=== PATIENT | male | born 1980 | race Caucasian/White ===

== ENCOUNTER 2019-10-31 11:06 | Emergency (ER) | payer SELFPAY ==
[~2019-10-31] VITALS: Ht 170.2 cm; Wt 125.0 kg
[2019-10-31 11:30] LABS: BASOPHILS # (AUTO) 0.03 x10^3/uL (0-0.1); BASOPHILS % (AUTO) 0 % (0-1); EOSINOPHILS # (AUTO) 0.01 x10^3/uL (0-0.4); EOSINOPHILS % (AUTO) 0 % (1-7); LYMPHOCYTES % (AUTO) 26 % (22-44); MD NO; MEAN CORPUSCULAR HEMOGLOBIN 26.8 pg (27.5-34.5); MEAN CORPUSCULAR HGB CONC 32.8 g/dL (33.2-36.2); MEAN CORPUSCULAR VOLUME 81.9 fL (81-97); MONOCYTES # (AUTO) 0.61 x10^3/uL (0.2-0.8); MONOCYTES % (AUTO) 8 % (2-9); NEUTROPHILS # (AUTO) 5.43 x10^3/uL (1.8-6.8); NEUTROPHILS % (AUTO) 66 % (42-75); PLATELET COUNT 295 x10^3/uL (130-400); RED BLOOD COUNT 5.66 x10^6/uL (4.38-5.82); RED CELL DISTRIBUTION WIDTH 13.1 % (9.4-14.8)
[2019-10-31 11:42] LABS: ALBUMIN 3.9 g/dL (3.4-5.0); ANION GAP 8 mmol/L (5-15); CALCIUM 8.7 mg/dL (8.5-10.1); CHLORIDE 108 mmol/L (98-107); SALICYLATE LEVEL 2.3 mg/dL (2.8-20.0)
[2019-10-31 11:45] LABS: ALANINE AMINOTRANSFERASE 58 U/L (12-78); ALKALINE PHOSPHATASE 51 U/L (45-117); BILIRUBIN,TOTAL 0.5 mg/dL (0.2-1.0)
--- NOTE | 2019-10-31 11:55 | NUR ---
PT PROVIDED WITH URINE CUP AND INSTRUCTIONS FOR ITS COLLECTION. PT VERBALIZES UNDERSTANDING, BUT IS PREOCCUPIED WITH TRANSPORTATION AFTER DISCHARGE. PT INFORMED THAT THE URINE SAMPLE IS THE LAST THING NEEDED FOR HIS MEDICAL WORKUP. PT VERBALIZES UNDERSTANDING. CUP LEFT AT BEDSIDE, CALL LIGHT IN REACH.
[2019-10-31 12:58] LABS: AMPHETAMINE SCREEN, URINE Positive (Negative); BARBITURATE SCREEN, URINE Negative (Negative); BENZODIAZEPINE SCREEN, URINE Negative (Negative); CANNABINOID SCREEN, URINE Positive (Negative); COCAINE SCREEN, URINE Negative (Negative); METHADONE SCREEN, URINE Negative (Negative); OPIATE SCREEN, URINE Negative (Negative)
[2019-10-31] MEDS ORDERED: OLANZAPINE 10 MG TABLET ONE (13:48)
[2019-10-31] MEDS: OLANZAPINE 10 MG TABLET PO SCH (13:50)
--- NOTE | 2019-10-31 15:14 | NUR ---
PACKET FAXED TO [facility]
--- NOTE | 2019-10-31 15:33 | NUR ---
PT REMAINS IN BED, DENIES ANY NEEDS OR CONCERNS AT THIS TIME.
--- NOTE | 2019-10-31 16:44 | NUR ---
CARPENTER RAILCAR: PT MOVED TO SECURE ROOM 38.
--- NOTE | 2019-10-31 17:22 | NUR ---
RECEIVED REPORT FROM RICHMOND LIZAMA
--- NOTE | 2019-10-31 17:22 | NUR ---
ROOM EQUIPMENT SECURED BEHIND PULL DOWN DOORS. PT IN DIRECT VIEW OF PT.
--- NOTE | 2019-10-31 18:51 | NUR ---
REPORT TO AZIZA LIZAMA
--- NOTE | 2019-10-31 19:40 | NUR ---
PATIENT SLEEPING COMFORTABLY AT THIS TIME, NAD. SITTER OUTSIDE OF PATIENTS ROOM, AWAITING FOR PLACEMENT. PATIENT UTD ON PLAN RN WILL CONTINUE TO MONITOR
--- NOTE | 2019-10-31 22:09 | NUR ---
patient got up and steadily ambulated to the bathroom and back into his room. patient is calm and cooperative. rn gave patient cranberry juice upon request from patient. rn will continue to monitor
--- NOTE | 2019-11-01 00:16 | NUR ---
PATIENT SLEEPING IN ROOM, CALM AND COOPERATIVE, NAD, SITTER OUTSIDE OF ROOM. AWAITING FOR PLACEMENT, RN WILL CONTINUE TO MONITOR
--- NOTE | 2019-11-01 02:57 | NUR ---
TASK RN: PT ASLEEP IN [facility] AT THIS TIME; FRANKI. SITTER OUTSIDE OF PT ROOM FOR DIRECT OBSERVATION OF PT AT THIS TIME.
--- NOTE | 2019-11-01 06:02 | NUR ---
patient asleep resting comfortably, nad, nothing needed at this time, sitter outside, rn will continue to monitor
--- NOTE | 2019-11-01 07:04 | NUR ---
REPORT RECEIVED FROM AZIZA LIZAMA. PT SLEEPING ON HOSPITAL BED W/ SITTER OUTSIDE ROOM FOR SAFETY. FRANKI.
--- NOTE | 2019-11-01 08:03 | NUR ---
VSS, RESP EVEN AND UNLABORED, NADN. PT DENIES SI/HI AT THIS TIME. PT CALM AND COOPERATIVE. PT EDUCATED ON L2K PROCESS AND THAT HE WOULD BE SEEN BY A PSYCH DIRECTOR OF BRAND MARKETING BETWEEN 10-11AM TODAY. PT PROVIDED W/ 2 CRANBERRY JUICES PER REQUEST.
--- NOTE | 2019-11-01 08:24 | NUR ---
BREAKFAST TRAY DELIVERED.
[2019-11-01] MEDS ORDERED: OLANZAPINE 10 MG TABLET ONE (08:44)
[2019-11-01] MEDS: OLANZAPINE 10 MG TABLET PO SCH (08:53)
--- NOTE | 2019-11-01 08:53 | NUR ---
PT MEDICATED PER EMAR. RESTING ON GURNEY W/ SITTER OUTSIDE ROOM. GARAGE DOORS DOWN FOR SAFETY.
--- NOTE | 2019-11-01 09:49 | NUR ---
PT RESTING ON GURNEY W/ SITTER OUTSIDE ROOM. GARAGE DOORS DOWN FOR SAFETY. FRANKI.
--- NOTE | 2019-11-01 10:59 | NUR ---
PT RESTING ON GURNEY W/ SITTER OUTSIDE ROOM. GARAGE DOORS DOWN FOR SAFETY. FRANKI.
--- NOTE | 2019-11-01 11:14 | NUR ---
LUNCH TRAY ORDERED.
--- NOTE | 2019-11-01 11:49 | NUR ---
LUNCH TRAY DELIVERED. PT RESTING ON GURNEY W/ SITTER OUTSIDE ROOM AND GARAGE DOORS DOWN FOR SAFETY.
--- NOTE | 2019-11-01 13:00 | NUR ---
ROSIE MENENDEZ AT BEDSIDE FOR EVAL.
--- NOTE | 2019-11-01 13:52 | NUR ---
PT RESTING ON GURNEY W/ SITTER OUTSIDE ROOM. GARAGE DOORS DOWN FOR SAFETY. FRANKI.
--- NOTE | 2019-11-01 14:56 | NUR ---
PT RESTING ON GURNEY W/ SITTER OUTSIDE ROOM. GARAGE DOORS DOWN FOR SAFETY. FRANKI.
--- NOTE | 2019-11-01 15:00 | NUR ---
PT TRANSPORTED TO HOSPITAL BED.
--- NOTE | 2019-11-01 16:13 | NUR ---
PT RESTING ON HOSPITAL BED W/ SITTER OUTSIDE ROOM. GARAGE DOORS DOWN FOR SAFETY. SUSANN.
--- NOTE | 2019-11-01 17:15 | NUR ---
PT RESTING ON HOSPITAL BED W/ SITTER OUTSIDE ROOM. GARAGE DOORS DOWN FOR SAFETY. SUSANN.
--- NOTE | 2019-11-01 17:30 | NUR ---
DINNER TRAY DELIVERED.
--- NOTE | 2019-11-01 18:50 | NUR ---
REPORT GIVEN TO LINDA LIZAMA.
--- NOTE | 2019-11-01 19:50 | NUR ---
PT RESTING ON GURNEY, RESP EVEN AND UNLABORED. PT DENIES ANY NEEDS AT THIS TIME. SITTER IN DIRECT LINE OF SITE. WILL CONTINUE TO MONITOR
[2019-11-01 21:15] VITALS: BP 110/68
--- NOTE | 2019-11-01 23:08 | NUR ---
Pt ambulated to restroom without assistance. Provided pt with juice per pt request. Pt laying on gurney, resp even and unlabored.
--- NOTE | 2019-11-02 01:57 | NUR ---
PT RESTING ON GURNEY, RESP EVEN AND UNLABORED. SITTER IN DIRECT LINE OF SIGHT.
--- NOTE | 2019-11-02 05:13 | NUR ---
PT RESTING IN BED, PT ROOM IS SI SECURED WITH SITTER AT PT DOOR. PT HAS NO WANTS OR NEEDS AT THIS TIME. PANEL BEATER WILL CONTINUE TO MONITOR PT.
--- NOTE | 2019-11-02 06:57 | NUR ---
SBAR HAND-0FF REPORT RECEIVED FROM DL RODRIGUEZ. ASSUMING CARE OF PATIENT.
[2019-11-02] MEDS ORDERED: OLANZAPINE 10 MG TABLET ONE (10:16)
[2019-11-02] MEDS: OLANZAPINE 10 MG TABLET PO SCH (10:22)
--- NOTE | 2019-11-02 11:16 | NUR ---
SBAR TELEPHONE HAND-OFF REPORT GIVEN TO DL ACHARYA AT [facility].
== END 2019-11-02 13:47 ==
LOC: ED 13:16
DX: F20.9 Schizophrenia, unspecified (principal); F15.10 Other stimulant abuse, uncomplicated
CPT/HCPCS: 36415; 80053; 80307; 85025; 99285

== ENCOUNTER 2019-11-06 05:43 | Emergency (ER) | payer SELFPAY ==
[~2019-11-06] VITALS: Ht 170.2 cm; Wt 122.7 kg
--- NOTE | 2019-11-06 06:37 | NUR ---
PATIENT PLACED IN ROOM. AMBULATORY WITHOUT COMPLICATIONS. AWAITING MD EVALUATION
--- NOTE | 2019-11-06 06:46 | NUR ---
REPORT GIVEN TO DL TAVERAS
--- NOTE | 2019-11-06 06:57 | NUR ---
report received from gaby ibrahim.
[2019-11-06] MEDS ORDERED: LORazepam 1MG TABLET ONE (07:17)
--- NOTE | 2019-11-06 07:18 | NUR ---
lab at bedside. urine cup given.
[2019-11-06 07:25] LABS: BASOPHILS # (AUTO) 0.03 x10^3/uL (0-0.1); BASOPHILS % (AUTO) 0 % (0-1); EOSINOPHILS # (AUTO) 0.01 x10^3/uL (0-0.4); EOSINOPHILS % (AUTO) 0 % (1-7); LYMPHOCYTES # (AUTO) 2.56 x10^3/uL (1-3.4); LYMPHOCYTES % (AUTO) 29 % (22-44); MD NO; MEAN CORPUSCULAR HEMOGLOBIN 26.6 pg (27.5-34.5); MEAN CORPUSCULAR HGB CONC 32.4 g/dL (33.2-36.2); MEAN CORPUSCULAR VOLUME 82.2 fL (81-97); MEAN PLATELET VOLUME 9.1 fL (7.4-10.4); MONOCYTES # (AUTO) 0.84 x10^3/uL (0.2-0.8); MONOCYTES % (AUTO) 9 % (2-9); NEUTROPHILS # (AUTO) 5.48 x10^3/uL (1.8-6.8); NEUTROPHILS % (AUTO) 61 % (42-75); PLATELET COUNT 295 x10^3/uL (130-400); RED BLOOD COUNT 6.15 x10^6/uL (4.38-5.82); RED CELL DISTRIBUTION WIDTH 13.3 % (9.4-14.8)
[2019-11-06] MEDS ORDERED: LORazepam 1MG TABLET PO ONE (07:30)
--- NOTE | 2019-11-06 07:32 | NUR ---
pt amb to br and back to room with steady gait. urine collected. ua sent.
--- NOTE | 2019-11-06 07:32 | NUR ---
pt medicated per emar. pt tolerated well.
[2019-11-06 07:35] LABS: ALBUMIN 4.1 g/dL (3.4-5.0); ANION GAP 10 mmol/L (5-15); CALCIUM 8.6 mg/dL (8.5-10.1); CHLORIDE 102 mmol/L (98-107); CREATININE 0.96 mg/dL (0.7-1.3); SALICYLATE LEVEL 1.8 mg/dL (2.8-20.0)
[2019-11-06 08:07] LABS: MICROSCOPIC AUTO
[2019-11-06 08:12] LABS: AMPHETAMINE SCREEN, URINE Positive (Negative); BARBITURATE SCREEN, URINE Negative (Negative); BENZODIAZEPINE SCREEN, URINE Negative (Negative); CANNABINOID SCREEN, URINE Positive (Negative); COCAINE SCREEN, URINE Negative (Negative); METHADONE SCREEN, URINE Negative (Negative); OPIATE SCREEN, URINE Negative (Negative)
--- NOTE | 2019-11-06 08:52 | NUR ---
[facility]. pt's aox4. resps even and unlabored. denies any needs or concerns at this time.
--- NOTE | 2019-11-06 09:16 | NUR ---
awating lighting equipment operator evaluation at this time.
--- NOTE | 2019-11-06 09:46 | NUR ---
WATER PROVIDED PER REQUEST AT THIS TIME.
--- NOTE | 2019-11-06 11:14 | NUR ---
BUSINESS OBJECTS REPORT DEVELOPER AT BEDSIDE TO EVALUATE. PT NOT COOPERATIVE AT THIS TIME.
--- NOTE | 2019-11-06 11:16 | NUR ---
PT USING HOSPITAL PHONE AND TALKING TO [place] AT THIS TIME.
--- NOTE | 2019-11-06 12:00 | NUR ---
PT TALKED TO [place] AND MAINOR. PT CHANGED HIS MIND AND PT WOULD LIKE TO STAY HERE TO EVALUATE FROM GENERAL LABOR FORKLIFT OPERATOR AT THIS TIME. GENERAL LABOR FORKLIFT OPERATOR NOTIFIED.
--- NOTE | 2019-11-06 12:06 | NUR ---
PT'S BELONGINGS PUT INTO ONE BAG. BELONGING BAG AND PT'S BLACK BAG PUT INTO THE LOCKER.
--- NOTE | 2019-11-06 13:02 | NUR ---
TURBO ELECTRIC OPERATOR AT BEDSIDE TO EVALUATE AT THIS TIME.
[2019-11-06 13:54] VITALS: BP 135/92
--- NOTE | 2019-11-06 13:55 | NUR ---
Patient given discharge instructions and they have confirmed that they understand the instructions. Patient ambulatory with steady gait.
== END 2019-11-06 13:56 | disposition home or self-care (01) ==
LOC: ED 07:15
DX: F20.0 Paranoid schizophrenia (principal); I10 Essential (primary) hypertension
CPT/HCPCS: 36415; 80048; 80307; 81001; 82040; 85025; 99284